=== PATIENT | male | born 1990 | race African-American/Black ===

== ENCOUNTER 2017-12-02 14:02 | Emergency (ER) | payer OTHER ==
[2017-12-02] MEDS ORDERED: METHYLPREDNISOLONE 125 MG INJ ONE (14:17)
[2017-12-02] MEDS ORDERED: FAMOTIDINE 20 MG/2 ML VIAL IV ONE (14:17)
--- NOTE | 2017-12-02 15:55 | ER ---
Nurse's Notes [facility] Name: Rafa Ramsey Age: 27 yrs Sex: Male : 1990 Arrival Date: 12/02/2017 Time: 14:07 Bed 24 Private MD: Diagnosis: Allergic Reaction Presentation: 12/02 14:22 Presenting complaint: EMS gave report to ZORAN Avalos. Per ZORAN Goodman patient was kr2 stung by an unknown insect on his foot and started having an allergic reaction of severe itching and swelling around the eyes. Transition of care: patient was not received from another setting of care. Onset of symptoms was December 02, 2017. Risk Assessment: Do you want to hurt yourself or someone else? Patient reports no desire to harm self or others. Initial Sepsis Screen: Does the patient meet any 2 criteria? No. Patient's initial sepsis screen is negative. Does the patient have a suspected source of infection? No. Patient's initial sepsis screen is negative. Care prior to arrival: Medication(s) given: Benadryl 25mg IVP IV initiated. 20 GA, in the left antecubital area. 14:22 Method Of Arrival: EMS kr2 14:22 Acuity: JEZ 4 kr2 Triage Assessment: 14:24 General: Appears in no apparent distress. comfortable, well groomed, well developed, kr2 well nourished, Behavior is calm, cooperative, appropriate for age. Pain: Denies pain. Historical: - Allergies: 14:26 No Known Allergies; kr2 - Home Meds: 14:26 ibuprofen 100 mg/5 mL Oral susp 20 mL daily [Active]; kr2 - PMHx: 14:26 ruptured appendix; kr2 - PSHx: 14:26 Appendectomy; kr2 - Immunization history:: Adult Immunizations unknown. - Social history:: Smoking status: Patient/guardian denies using tobacco. - Ebola Screening: : No symptoms or risks identified at this time. Screenin:24 Abuse screen: Denies threats or abuse. Denies injuries from another. Nutritional kr2 screening: No deficits noted. Tuberculosis screening: No symptoms or risk factors identified. Fall Risk None identified. Assessment: 14:20 General: Appears in no apparent distress. comfortable, well groomed, well developed, kr2 well nourished, Behavior is calm, cooperative, appropriate for age. Pain: Denies pain. Neuro: Level of Consciousness is awake, alert, obeys commands, Oriented to person, place, time, situation, Appropriate for age. Cardiovascular: Heart tones S1 S2 present Capillary refill < 3 seconds in bilateral fingers Patient's skin is warm and dry. Respiratory: Airway is patent Respiratory effort is even, unlabored, Respiratory pattern is regular, symmetrical. GI: Abdomen is round non-distended, Bowel sounds present X 4 quads. EENT: Nares are clear bilaterally Oral mucosa is moist. Throat is clear bilaterally. EENT: Reports itching all over body after being stung by an unknown insect. Reports he started having swelling around his eyes. Rec'd benadryl by EMS and says the itching subsided after that . Derm: Skin is intact, is healthy with good turgor, Skin is pink, warm \T\ dry. red raised welt on top of left foot, patient reports he was stung by unknown insect. Musculoskeletal: Circulation, motion, and sensation intact. Range of motion: intact in all extremities. 15:23 Reassessment: Patient appears in no apparent distress at this time. Patient and/or kr2 family updated on plan of care and expected duration. Pain level reassessed. Patient is alert, oriented x 3, equal unlabored respirations, skin warm/dry/pink. Patient denies pain at this time. Patient states feeling better. 16:03 Reassessment: Patient appears in no apparent distress at this time. Patient and/or kr2 family updated on plan of care and expected duration. Pain level reassessed. Patient is alert, oriented x 3, equal unlabored respirations, skin warm/dry/pink. Patient denies pain at this time. Patient states feeling better. Vital Signs: 14:26 BP 114 / 68; Pulse 70; Resp 19; Temp 98.2; Pulse Ox 99% on R/A; Weight 103.42 kg; kr2 Height 6 ft. 1 in. (185.42 cm); Pain 0/10; 14:26 BP 101 / 59; Pulse 79; Resp 18; Pulse Ox 98% on R/A; kr2 16:03 BP 104 / 67; Pulse 80; Resp 17; Pulse Ox 98% on R/A; kr2 14:26 Body Mass Index 30.08 (103.42 kg, 185.42 cm) kr2 ED Course: 14:07 Patient arrived in ED. iw 14:08 [facility] Harden [facility]. cp 14:08 Jhon Matias MD is Attending Physician. cp 14:11 Raina Santillan, RN is Primary Nurse. kr2 14:24 Triage completed. kr2 14:25 Arm band placed on. kr2 14:25 Patient has correct armband on for positive identification. Bed in low position. Call kr2 light in reach. Side rails up X 1. Pulse ox on. NIBP on. Door closed. Warm blanket given. Head of bed elevated. 16:03 No provider procedures requiring assistance completed. IV discontinued, intact, kr2 bleeding controlled, No redness/swelling at site. Pressure dressing applied. Administered Medications: 14:22 Drug: SOLU-Medrol 125 mg Route: IVP; Site: left antecubital; kr2 15:22 Follow up: Response: No adverse reaction; Marked relief of symptoms kr2 14:22 Drug: Pepcid 20 mg Route: IVP; Site: left antecubital; kr2 15:22 Follow up: Response: No adverse reaction; Marked relief of symptoms kr2 Outcome: 15:54 Discharge ordered by . cp 16:04 Discharged to home ambulatory. kr2 16:04 Condition: improved 16:04 Discharge instructions given to patient, Instructed on discharge instructions, follow up and referral plans. medication usage, Demonstrated understanding of instructions, follow-up care, medications, Prescriptions given X 3. 16:04 Patient left the ED. kr2 Signatures: Suzanne Reza RN RN Long Harden PA PA cp Raina Santillan, RN RN kr2 Corrections: (The following items were deleted from the chart) 15:23 14:26 Pulse 70bpm; Resp 19bpm; Pulse Ox 99% RA; Temp 98.2F; 103.42 kg; Height 6 ft. 1 kr2 in.; BMI: 30.0; Pain 0/10; kr2
--- NOTE | 2017-12-02 15:55 | EDPHYS ---
Physician Documentation [facility] Name: Rfaa Ramsey Age: 27 yrs Sex: Male : 1990 Arrival Date: 12/02/2017 Time: 14:07 Bed 24 Private MD: ED Physician Jhon Matias HPI: 12/02 14:10 This 27 yrs old Black Male presents to ER via Unassigned with complaints of allergic cp reaction. 14:10 The patient presents with rash, swelling of face. cp 14:10 Onset: The symptoms/episode began/occurred suddenly, today. Possible causes: unknown. cp Patient reports he was standing outside apartment when he felt like something stung his left foot. Patient reports he immediately starting feeling like face was swelling. EMS was called and reported observing rash to upper body. Patient was administered Benadryl by EMS. Historical: - Allergies: 14:26 No Known Allergies; kr2 - Home Meds: 14:26 ibuprofen 100 mg/5 mL Oral susp 20 mL daily [Active]; kr2 - PMHx: 14:26 ruptured appendix; kr2 - PSHx: 14:26 Appendectomy; kr2 - Immunization history:: Adult Immunizations unknown. - Social history:: Smoking status: Patient/guardian denies using tobacco. - Ebola Screening: : No symptoms or risks identified at this time. ROS: 14:15 Constitutional: Negative for body aches, chills, fever, poor PO intake. cp 14:15 Eyes: Negative for discharge, pain, redness, visual disturbance. cp 14:15 ENT: Negative for drainage from ear(s), ear pain, sore throat, difficulty swallowing, difficulty handling secretions. 14:15 Respiratory: Negative for cough, shortness of breath, wheezing. 14:15 Abdomen/GI: Negative for abdominal pain, nausea, vomiting, and diarrhea. 14:15 Skin: Positive for rash, swelling around eyes, Negative for cellulitis. 14:15 Neuro: Negative for altered mental status, headache, weakness. 14:15 All other systems are negative. Exam: 14:22 Constitutional: The patient appears in no acute distress, alert, awake, non-toxic, well cp developed, well nourished. 14:22 Head/Face: Normocephalic, atraumatic. cp 14:22 Eyes: Pupils equal round and reactive to light, extra-ocular motions intact. Lids and cp lashes normal. Conjunctiva and sclera are non-icteric and not injected. Cornea within normal limits. Periorbital areas with no swelling, redness, or edema. ENT: Nares patent. No nasal discharge, no septal abnormalities noted. Tympanic membranes are normal and external auditory canals are clear. Oropharynx with no redness, swelling, or masses, exudates, or evidence of obstruction, uvula midline. Mucous membranes moist. Neck: Trachea midline, no thyromegaly or masses palpated, and no cervical lymphadenopathy. Supple, full range of motion without nuchal rigidity, or vertebral point tenderness. No Meningismus. Chest/axilla: Normal chest wall appearance and motion. Nontender with no deformity. No lesions are appreciated. Cardiovascular: Regular rate and rhythm with a normal S1 and S2. No gallops, murmurs, or rubs. Normal PMI, no JVD. No pulse deficits. Respiratory: Lungs have equal breath sounds bilaterally, clear to auscultation and percussion. No rales, rhonchi or wheezes noted. No increased work of breathing, no retractions or nasal flaring. Abdomen/GI: Soft, non-tender, with normal bowel sounds. No distension or tympany. No guarding or rebound. No evidence of tenderness throughout. Skin: Warm, dry with normal turgor. Normal color with no rashes, no lesions, and no evidence of cellulitis. Neuro: Awake and alert, GCS 15, oriented to person, place, time, and situation. Cranial nerves II-XII grossly intact. Motor strength 5/5 in all extremities. Sensory grossly intact. Cerebellar exam normal. Normal gait. Vital Signs: 14:26 BP 114 / 68; Pulse 70; Resp 19; Temp 98.2; Pulse Ox 99% on R/A; Weight 103.42 kg; kr2 Height 6 ft. 1 in. (185.42 cm); Pain 0/10; 14:26 BP 101 / 59; Pulse 79; Resp 18; Pulse Ox 98% on R/A; kr2 16:03 BP 104 / 67; Pulse 80; Resp 17; Pulse Ox 98% on R/A; kr2 14:26 Body Mass Index 30.08 (103.42 kg, 185.42 cm) kr2 MDM: 14:10 Patient medically screened. cp 15:52 Data reviewed: vital signs, nurses notes, and as a result, I will discharge patient. 15:52 ED course: VSS. Patient reports he is feeling better. Administered Medications: 14:22 Drug: SOLU-Medrol 125 mg Route: IVP; Site: left antecubital; kr2 15:22 Follow up: Response: No adverse reaction; Marked relief of symptoms kr2 14:22 Drug: Pepcid 20 mg Route: IVP; Site: left antecubital; kr2 15:22 Follow up: Response: No adverse reaction; Marked relief of symptoms kr2 Disposition: 16:30 Chart complete. 12/03 10:31 Co-signature as Attending Physician, Jhon Matias MD. Disposition: 12/02/17 15:54 Discharged to Home. Impression: Allergic Reaction. - Condition is Stable. - Discharge Instructions: Anaphylactic Reaction. - Prescriptions for Prednisone 20 mg Oral Tablet - take 2 tablets by ORAL route once daily for 5 days start morning of 12-03-2017; 10 tablet. Pepcid 20 mg Oral Tablet - take 1 tablet by ORAL route every 12 hours for 5 days; 10 tablet. EpiPen 0.3 mg Injection auto- injector - inject 1 pen by INTRAMUSCULAR route as directed Inject into the outer portion of the thigh, through clothing if necessary. Indicated in the emergency treatment of allergic reactions; 1 Kit. - Medication Reconciliation Form, Thank You Letter, Antibiotic Education, Prescription Opioid Use form. - Follow up: Private Physician; When: 2 - 3 days; Reason: Recheck today's complaints. - Problem is new. - Symptoms have improved. Signatures: Long Harden PA PA Jhon Matias MD MD Raina Santillan RN RN kr2 Corrections: (The following items were deleted from the chart) 12/02 16:04 15:54 12/02/2017 15:54 Discharged to Home. Impression: Allergic Reaction. Condition is kr2 Stable. Forms are Medication Reconciliation Form, Thank You Letter, Antibiotic Education, Prescription Opioid Use. Follow up: Private Physician; When: 2 - 3 days; Reason: Recheck today's complaints. Problem is new. Symptoms have improved. cp
== END 2017-12-02 16:04 | disposition home or self-care (01) ==
LOC: ER 14:02
DX: T78.49XA Other allergy, initial encounter (principal); X58.XXXA Exposure to other specified factors, initial encounter
CPT/HCPCS: 96374; 96375; 99284; J2930